=== PATIENT | female | born 1945 | race Caucasian/White ===

== ENCOUNTER 2019-08-30 09:23 | Emergency (ER) | payer OTHER ==
[~2019-08-30] VITALS: Ht 170.2 cm; Wt 99.8 kg
[2019-08-30] MEDS ORDERED: SIMVASTATIN40 MG PO (09:35)
[2019-08-30] MEDS ORDERED: ASPIR 8181 MG PO (09:36)
== END 2019-08-30 11:27 | disposition home or self-care (01) ==
LOC: ER 09:23
DX: K64.8 Other hemorrhoids (principal)